=== PATIENT | female | born 1965 | race Caucasian/White ===

== ENCOUNTER 2024-01-20 22:37 | Emergency (ER) | payer SELFPAY ==
[~2024-01-20] VITALS: Ht 152.4 cm; Wt 59.0 kg
[2024-01-20] MEDS ORDERED: ACETAMINOPHEN 325MG TABLET PO ONE (23:00)
[2024-01-20 23:02] VITALS: O2SAT 98
[2024-01-21] MEDS ORDERED: ACET-2708 MT (01:02)
[2024-01-21] MEDS ORDERED: BACL-141 MT (01:02)
[2024-01-21] MEDS: ACETAMINOPHEN 325MG TABLET PO NR (01:41)
[2024-01-21 01:47] VITALS: BP 105/59; PULSE 63; RESP 12; TEMP 98.6
== END 2024-01-21 02:54 | disposition home or self-care (01) ==
LOC: ER 22:37
DX: R07.89 Other chest pain (principal); M25.562 Pain in left knee; Z00.00 Encounter for general adult medical examination without abnormal findings; V49.9XXA Car occupant (driver) (passenger) injured in unspecified traffic accident, initial encounter; Y93.89 Activity, other specified; Y92.89 Other specified places as the place of occurrence of the external cause; Y99.8 Other external cause status
CPT/HCPCS: 71045; 73560; 73590; 93005; 99284